=== PATIENT | female | born 2000 ===

== ENCOUNTER 2022-09-20 09:59 | Emergency (ER) | payer MEDICAID, OTHER | END 2022-09-20 11:24 | disposition home or self-care (01) | LOC: JP.ED 09:59 | DX: S93.401A Sprain of unspecified ligament of right ankle, initial encounter (principal); W17.89XA Other fall from one level to another, initial encounter; Y93.44 Activity, trampolining | CPT/HCPCS: 73610-26-RT; 73610-RT; 73630-26-RT; 73630-RT; 99281; 99283 ==